=== PATIENT | female | born 1990 | race Caucasian/White ===

== ENCOUNTER 2017-01-24 16:17 | Inpatient (IN) ==
[2017-01-24] MEDS ORDERED: ONDANSETRON 4 MG/2 ML VIAL IV PRN (16:28)
[2017-01-24] MEDS ORDERED: BUTORPHANOL 2 MG/ML VIAL IV PRN (16:28)
[2017-01-24] MEDS ORDERED: DINOPROSTONE VAG GEL 10 MG SYRINGE VAG ONE (16:30)
--- NOTE | 2017-01-24 16:51 | OB/GYN History & Physical ---
History of Present Illness Chief complaint: In for elective induction of labor due to term History of present illness: Ms. Wilson is a 26 year old female 5 para 4 AB 1 who presented for elective induction of labor due to term . The risk and benefits of been thoroughly discussed with this patient significant other. Plan of care has been discussed with Dr. Kilgore and all parties are in agreement plan. Her YOVANA is 01/28/2017 for an estimated gestational age of 39 weeks and 3 days. The patient has had 3 previous vaginal deliveries and the largest weighed 7 pounds and 13 ounces and she reported no complications with any of her pregnancies. The patient presented to care at late at 20 weeks. She then received routine care thereafter and her course was uneventful. labs: She is a positive, hepatitis B is negative, RPR is nonreactive, HIV is negative, rubella is immune, and GBS culture negative. Review of systems is negative with exception of above. Home Medications Medication Instructions Recorded Confirmed Type Doxycycline Hyclate Cap 100 mg PO BID #14 capsule 03/14/16 01/24/17 Rx [Vibramycin Cap] HYDROcodone/ACETAMIN 5-325 [[place] 1 tablet PO Q4H #20 tablet 03/14/16 01/24/17 Rx 5-325] Allergies Allergy/AdvReac Type Severity Reaction Status Date / Time No Known Allergies Allergy Verified 07/30/15 10:10 12 point system: reviewed and no additional remarkable complaints except as stated Medical,Surgical,& Family Hx - Medical History Cardio: History of: Hypertension (gestational) Psychological: History of: Depression (pp depression 2012) Neurology: No history of: Seizures HEENT: History of: Eye Problem (driving glasses) Genitourinary: History of: Kidney Stones Reproductive: History of: Complication (increased BP with ( 2013)) No history of: Ectopic - Surgical History Thoracic Surgeries: Surgical HX of;: Lithotripsy Reproductive Surgeries: Surgical HX of;: Dilation and Curettage Patient denies;: Section - Family History Family History: Reports;: Family Cancer (Maternal grandfather bone), Family Hypertension (dad) Denies;: Family Anesthesia Reaction, Family Diabetes, Family Heart Disease, Family Psychiatric Problems, Family Stroke - Social History Smoking Status: Current every day smoker Have you smoked in the last 12 months: Yes Marital Status: Single Lives With:: Significant Other Functional capacity: independent ambulation Exam [employer]IC - Constitutional General appearance: no acute distress - Antepartum / Post Antepartum Exam Cervix - Dilatation: 1 cm Effacement: 50% Station: -3 Rupture: Intact Presentation: Vertex Heart Rate: 130s-140 Breast: bilateral: normal Abdomen obstetrics: Present: bowel sounds normal Vagina: Present: normal moisture Uterus exam: Present: enlarged - Respiratory Respiratory exam: Present: clear to auscultation bilaterally - Cardiovascular Cardiovascular exam: Present: regular rate and rhythm - GI/Abdominal GI/Abdominal exam: Present: normal bowel sounds, soft - Extremities Exam Extremities exam: Present: normal inspection - Back Exam Back exam: Present: normal inspection - Neurological Exam Neurological exam: Present: alert, oriented X3 - Psychiatric Psychiatric exam: Present: normal affect, normal mood - Skin Skin exam: Present: normal color, warm Assessment and Plan (1) Term Status: Acute Assessment and plan: Admit IV fluids Prostin gel per protocol IV Pitocin per protocol if indicated Epidural anesthesia if desired Artificial rupture membranes when appropriate Anticipate Current Visit: Yes Quality Measures - VTE Contraindication to Pharmacological VTE Prophylaxis: Continuous Epidural Infusion
[2017-01-24] MEDS: LACTATED RINGERS 1,000 ML IV SCH ×2 (16:55→19:45)
[2017-01-24 17:40] LABS: Basophils % 0.1 % (0.0-0.8); Eosinophils # 0.2 10*3/uL (0.0-0.87); Eosinophils % 1.3 % (0.00-10.9); Hematocrit 29.4 VOL% (35.7-47.0); Hemoglobin 9.9 GM/DL (12.0-16.0); Immature Granulocytes Absolute 0.29 #; Lymphocytes # 2.2 10*3/uL (1.4-4.0); Lymphocytes % 15.2 % (21.3-54.2); Mean Corpuscular HGB Conc 33.7 GM/DL (32-36); Mean Corpuscular Hemoglobin 31 PG (27-34); Mean Platelet Volume 11.1 FL (9.6-12.0); Monocytes # 0.9 10*3/uL (0.11-0.8); NRBC # 0.02 10*3/uL; Neutrophils % 75.4 % (38.7-73.9); Platelet Count 336 T/CUMM (130-400); Red Blood Count 3.23 MC/CUMM (3.8-5.5); Red Cell Distribution Width 15.5 % (9.3-17.3); White Blood Count 14.6 T/CUMM (4-12)
[2017-01-24 18:05] LABS: Albumin 2.2 G/DL (3.4-5.0); Bilirubin,Total 0.4 MG/DL (0.2-1.0); Calcium 8.5 MG/DL (8.5-10.1); Total Protein 5.2 G/DL (6.4-8.3)
[2017-01-24 18:06] LABS: Osmolality,Calculated 273.5 MOS/KG (273-304)
[2017-01-24] MEDS ORDERED: diphenhydrAMINE 50 MG/1 ML VIAL IV PRN (18:58)
[2017-01-24] MEDS ORDERED: LACTATED RINGERS 500 ML IV ONE (18:58)
[2017-01-24] MEDS ORDERED: FAMOTIDINE 20 MG/2 ML VIAL IV ONE (18:58)
[2017-01-24] MEDS ORDERED: ePHEDrine 50 MG/ML AMP IV PRN (18:58)
[2017-01-24] MEDS ORDERED: hydrOXYzine HCL 25 MG/1 ML VIAL IM PRN (18:58)
[2017-01-24] MEDS ORDERED: PROMETHAZINE 25 MG/1 ML VIAL IM ONE (18:58)
[2017-01-24] MEDS ORDERED: fentaNYL 2 MCG/ROPIV 0.2% EPID 150 ML EPIDURAL SCH (18:58)
[2017-01-24] MEDS ORDERED: CITRIC ACID/SODIUM CITRATE 30 ML UDCUP PO ONE (18:58)
[2017-01-24 21:27] LABS: Apearance,Urine CLEAR (Clear); Bilirubin,Urine Negative (Negative); Blood, Urine Small mg/dL (Negative); Glucose,Urine (UA) Negative (Negative); Ketones,Urine Negative (Negative); Nitrite,Urine Negative (Negative); Protein,Urine Negative; RBC,Urine <1 /HPF (0-4); Squamous Epithelial Cell,Urine Occasional /HPF (0-10); Urine Color Straw (Yellow); Urine Specific Gravity 1.003 (1.001-1.035); Urine Urobilinogen < 2.0 EU/DL (0.2-1.0); WBC,Urine 1 /HPF (0-6)
[2017-01-24 21:50] LABS: Barbiturates Screen,Urine Negative (Negative); Benzodiazepines Screen,Urine Positive (Negative); Cannabinoid Screen,Urine Positive (Negative); Opiate Screen,Urine Negative (Negative); Phencyclidine Screen,Urine Negative (Negative)
[2017-01-25] MEDS: LACTATED RINGERS 1,000 ML IV SCH (01:00)
[2017-01-25] MEDS ORDERED: OXYTOCIN/LR 20 UNIT/1,000 ML BAG IV SCH (02:00)
--- NOTE | 2017-01-25 04:30 | Event Note ---
HPI: Ms. Wilson is a 26-year-old female who presented to the labor department for elective induction of labor due to term . The risk and benefits were thoroughly discussed with this patient and significant other and plan of care was discussed with Dr. Kilgore, all parties are in agreement plan. Stage I: The patient was admitted she received IV fluid and Prostin per protocol. She progressed in labor throughout the night and was eventually started on IV Pitocin per protocol. She also received an epidural for pain control. The patient was very lethargic for the amount of pain medicines that she had received therefore a use a drug screen was performed with a positive screen for benzos and THC. She experienced spontaneous rupture membranes with meconium fluid noted. Otherwise the patient had an uneventful course of labor. Stage II: The patient was complete and complained of pressure and desire to push. She pushed for approximately 3 times at the third time the infant's head was delivered. The mouth and nose were suctioned out on the perineum with the DeLee and bulb suctioning. The remainder the infant was delivered and 416 a viable female infant was noted. Apgars were 9 at 1 minute and 9 at 5 minutes. The infant was placed on the mom's abdomen for skin to skin bonding. Cord pH was obtained and sent to the lab. Stage III: A spontaneous delivery of a Bliss placenta with a three-vessel cord noted. The placenta was further examined appeared to be grossly intact with meconium staining. The vagina cervix was inspected with no tears or lacerations noted. Estimated blood loss was approximately 100 cc. The placenta was sent to pathology for further evaluation due to the meconium. At the time of dictation mother and baby are both in stable condition.
[2017-01-25 04:31] LABS: Cord Arterial Blood HCO3 19.9 MMOL/L
[2017-01-25] MEDS ORDERED: BISACODYL 10 MG SUPP RECTAL PRN (04:31)
[2017-01-25] MEDS ORDERED: BENZOCAINE 20%/MENTHOL 0.5% SPRAY 56 GM CAN TOP PRN (04:31)
[2017-01-25] MEDS ORDERED: OXYTOCIN/LR 20 UNIT/1,000 ML BAG IV ONE (04:31)
[2017-01-25] MEDS ORDERED: LANOLIN 50% CREAM 0.3 OZ TUBE TOP PRN (04:31)
[2017-01-25] MEDS ORDERED: DIPH/TET/ACEL PERT BOOSTER VACCINE 0.5 ML VIAL IM ONE (04:31)
[2017-01-25] MEDS ORDERED: ACETAMINOPHEN 325 MG TABLET PO PRN (04:31)
[2017-01-25] MEDS ORDERED: MEASLES/MUMPS/RUBELLA VACCINE 0.5 ML VIAL SUBCUT ONE (04:31)
[2017-01-25] MEDS ORDERED: WITCH HAZEL PADS 100/JAR TOP PRN (04:31)
[2017-01-25] MEDS ORDERED: RHO(D) IMMUNE GLOBULIN 300 MCG SYRINGE IM ONE (04:31)
[2017-01-25] MEDS ORDERED: HYDROCORTISONE 2.5% RECTAL CREAM 30 GM TUBE TOP PRN (04:31)
[2017-01-25 04:33] LABS: Cord Venous Blood HCO3 22.3 MMOL/L; Cord Venous Blood PCO2 45.3 MMHG; Cord Venous Blood PO2 27.3
[2017-01-25] MEDS ORDERED: ONDANSETRON 4 MG/2 ML VIAL IV PRN (05:58)
--- NOTE | 2017-01-25 06:29 | Anesthesia Post-Op ---
Anesthesia Post OP - Post Ansesthetic Evaluation Patient seen in post op: Yes Resp: within normal limits CV: within normal limits Mental: within normal limits Temp: within normal limits [id number]: within normal limits Nausea and Vomiting: within normal limits Pain: within normal limits
[2017-01-25] MEDS: oxyCODONE/ACETAMINOPHEN 5-325 MG TABLET PO PRN ×3 (07:51→22:05)
[2017-01-25] MEDS: IBUPROFEN 800 MG TABLET PO PRN ×3 (07:51→20:30)
[2017-01-25] MEDS: DOCUSATE SODIUM 100 MG CAPSULE PO SCH ×2 (09:50→20:30)
[2017-01-25] MEDS: FERROUS SULFATE 325 MG TABLET PO SCH ×2 (10:53→20:30)
[2017-01-25] MEDS: ACETAMINOPHEN/CODEINE 300-30 MG TABLET PO PRN ×2 (10:55→18:09)
[2017-01-25] MEDS: hydrALAZINE 25 MG TABLET PO SCH (12:10)
[2017-01-26 02:44] LABS: Hematocrit 31.8 VOL% (35.7-47.0); Hemoglobin 10.3 GM/DL (12.0-16.0); Mean Corpuscular HGB Conc 32.4 GM/DL (32-36); Mean Corpuscular Hemoglobin 32 PG (27-34); Mean Corpuscular Volume 97.2 FL (87-102); Mean Platelet Volume 11.2 FL (9.6-12.0); Platelet Count 215 T/CUMM (130-400); Red Blood Count 3.27 MC/CUMM (3.8-5.5); Red Cell Distribution Width 15.9 % (9.3-17.3); White Blood Count 11.9 T/CUMM (4-12)
[2017-01-26] MEDS: IBUPROFEN 800 MG TABLET PO PRN ×3 (04:25→21:41)
[2017-01-26] MEDS: oxyCODONE/ACETAMINOPHEN 5-325 MG TABLET PO PRN ×2 (04:25→11:25)
[2017-01-26] MEDS: ACETAMINOPHEN/CODEINE 300-30 MG TABLET PO PRN ×2 (07:40→15:24)
[2017-01-26] MEDS: hydrALAZINE 25 MG TABLET PO SCH (08:51)
[2017-01-26] MEDS: DOCUSATE SODIUM 100 MG CAPSULE PO SCH ×2 (08:51→21:40)
[2017-01-26] MEDS: FERROUS SULFATE 325 MG TABLET PO SCH ×2 (08:52→21:40)
--- NOTE | 2017-01-26 09:49 | OB/GYN Progress Note ---
Assessment and Plan (1) Term Status: Acute Assessment and plan: Admit IV fluids Prostin gel per protocol IV Pitocin per protocol if indicated Epidural anesthesia if desired Artificial rupture membranes when appropriate Anticipate Current Visit: Yes (2) Vaginal delivery Status: Acute Assessment and plan: Initiate Routine orders. Current Visit: Yes WANT AD RECEIVER - PN: Subj Interval history: Stable with no complaints. Bonding well with infant. Exam WANT AD RECEIVER - Constitutional Vitals: Vital Signs Temp Pulse Resp BP Pulse Ox 01/26/17 07:35 97.6 F 64 20 121/75 97 01/26/17 06:12 16 01/26/17 04:25 97.2 F L 81 16 131/77 99 01/26/17 02:15 18 01/26/17 00:15 97.1 F L 78 18 121/76 99 01/25/17 22:05 80 20 121/81 99 01/25/17 20:00 97.6 F 75 20 111/71 100 01/25/17 16:00 97.4 F L 80 20 136/89 99 01/25/17 11:50 97.6 F 78 20 152/106 98 General appearance: no acute distress - Antepartum / Post Post Exam Breast: bilateral: normal Abdomen obstetrics: Present: bowel sounds normal Vulva: bilateral: normal Vagina: Present: normal moisture, discharge (light lochia rubra) Cervix: Present: normal Uterus exam: Present: enlarged Anus/Rectum: Present: normal perianal skin - Neck Neck exam: Present: normal inspection - Respiratory Respiratory exam: Present: clear to auscultation bilaterally - Cardiovascular Cardiovascular exam: Present: regular rate and rhythm - GI/Abdominal GI/Abdominal exam: Present: normal bowel sounds, soft - Extremities Exam Extremities exam: Present: normal inspection - Neurological Exam Neurological exam: Present: alert, oriented X3 - Psychiatric Psychiatric exam: Present: normal affect, normal mood - Skin Skin exam: Present: normal color, warm Results - Labs CBC & BMP: 01/26/17 02:11 01/24/17 17:23
--- NOTE | 2017-01-26 11:19 | Pathology Report from [facility] ---
[facility] [place] ACCESSION # : [id number] PATIENT NAME : Fox Mejia ORDERING DR : ROSARIO PRIEST MD CLINICAL HX: IUP @ 39.4 wks gestation, meconium stained fluid POST-OP DX: Same SPECIMEN INFO: Placenta GROSS DESCRIPTION: Received fresh labeled FOX MEJIA & PLACENTA is a 570 gm placenta measuring 21.0 x 18.0 x 2.0 cm. The membranes are pink may and translucent. The umbilical cord measures 32.0 cm, contains three vessels and is centrally inserted. The surface is blue cooney and intact. The maternal surface displays intact cotyledons with scattered calcification seen. Sectioning reveals no gross abnormalities. Sections submitted A- membranes and cord, B- and maternal surfaces. DIAGNOSIS FOR FOX MEJIA: PLACENTA: Trivascular umbilical cord. Unremarkable membranes. Term placenta with dystrophic calcification and intervillous fibrin deposition. COLLECTED DATE: 01/25/2017 [facility] REPORT DATE: 01/26/2017 ELECTRONICALLY SIGNED BY: Antionette Rodriguez III, M.D. 01/26/2017 - 9:28:09 MONIKA
[2017-01-27] MEDS: oxyCODONE/ACETAMINOPHEN 5-325 MG TABLET PO PRN (04:15)
[2017-01-27] MEDS: IBUPROFEN 800 MG TABLET PO PRN (06:55)
[2017-01-27 08:19] VITALS: BP 120/63
[2017-01-27] MEDS: hydrALAZINE 25 MG TABLET PO SCH (10:09)
[2017-01-27] MEDS: FERROUS SULFATE 325 MG TABLET PO SCH (10:10)
[2017-01-27] MEDS: DOCUSATE SODIUM 100 MG CAPSULE PO SCH (10:10)
--- NOTE | 2017-01-27 10:49 | Discharge Summary ---
Hospital Course - Hospital Course Hospital Course: day #2 Status post vaginal Lungs clear, cardiac exam benign, no palpitations. Uterus is firm and nontender Extremities well with no limits neurologic grossly intact DC today follow-up our office in 6 weeks Specialty Discharge - Follow Up or Referrals Discharge Plan - Discharge Data Condition at Discharge: Stable Discharge Diet: advance to your usual diet Activity: increase activity as tolerated Hygiene: may shower Driving: not until seen by doctor Contact your physician if you experience:: fever over 101, Shortness of breath, Bleeding - Discharge Medications New Acetamin/Codeine 300-30 Tab [Tylenol/Codeine #3] 2 tablet PO Q4H PRN #30 tablet PRN Reason: Pain Mild (1-3) hydrALAZINE TAB [Apresoline Tab] 25 mg PO DAILY #30 tablet Ibuprofen Tab [Motrin Tab] 800 mg PO Q6H PRN #30 tablet PRN Reason: Pain Moderate (4-7) No Action Doxycycline Hyclate Cap [Vibramycin Cap] 100 mg PO BID #14 capsule HYDROcodone/ACETAMIN 5-325 [[place] 5-325] 1 tablet PO Q4H #20 tablet - Follow Up or Referral - Forms/Instructions Instructions: Depression (GEN), Perineal Care (DC), Vaginal Delivery (DC), Bleeding (DC) Exam - Constitutional Vitals: Period Temp Pulse Resp BP Sys/Mayes Pulse Ox Last 24 Hr 96.9 F-99.1 F 67-89 16-20 120-142/63-99 95-100 Discharge Results Procedures and tests throughout hospitalization: Pending Orders 01/24/17 16:28 Urinalysis Routine DS: Provider Date of admission: 01/24/17 16:17 Primary care physician: Kari Mark MD Attending physician on admission: Gigi Kilgore MD Consults: 01/24/17 16:28 Consult to Anesthesiology [CONS] Routine Consulting Provider: Reason for Anesthesiology: Epidural Consult Comment: Epidural for pain managment 01/25/17 04:32 Consult to Traffic Representative [CONS] Routine Consult Traffic Representative: Breast Feeding 01/25/17 08:24 Consult to Case Mgmt/Social Srvs [CONS] Routine Reason for Case Mgmt/Social Srvs: Other Consult Comment: postive drug screen Discharging clinician: Gigi Kilgore MD
== END 2017-01-27 13:45 | disposition home or self-care (01) | DRG 560 ==
LOC: N.LD 16:17 → N.OB 01-25 05:45
PROVIDERS: ADMIT Obstetrics & Gynecology; ATTEND Obstetrics & Gynecology